=== PATIENT | male | born 1955 | race Caucasian/White ===

== ENCOUNTER → 2016-08-26 | Outpatient (CLI) | payer BC, OTHER ==
--- NOTE | 2016-08-26 10:04 | DI ---
LUMBAR SPINE SERIES, 08/26/2016 8:56 AM: Clinical History: Left leg pain. Previous Exam: 09/06/2010. Upright AP and lateral views are submitted. The vertebral bodies are of normal height and size. There is mild L4-5 disc space bearing with severe narrowing at L5-S1. Since the last exam, the patient has developed a grade 1 minimal spondylolisthesis at L4-5. There is a sclerotic lesion involving the bod y of L2 that was present before and has not changed. It is consistent with a bone island. The pedicle s are normal. 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 Both SI joints are normal. Readin. Chronic disc space narrowing at L4-5 and L5-S1 with arthritic changes in the respective apophysea l joints bilaterally. 2. Interval development of a very mild grade 1 spondylolisthesis at L4-5.
--- NOTE | 2016-08-26 10:10 | DI ---
AP PELVIS and LEFT HIP, 08/26/2016 8:56 AM: Clinical History: Left hip pain. Previous Exam: None at this facility. There is no soft tissue abnormality. The bony structures of the pelvis are normal. 2 views of the lef t hip are submitted. There is asphericity of the left femoral head. No acetabular over coverage is no jason. There is mild narrowing of the superior aspect of each hip joint consistent with degenerative ar thritic change. Readin. There is asphericity of the left femoral head raising the possibility of femoroacetabular impinge ment in this patient. Mild narrowing of the superior aspect of the joint space is noted. 2. The AP pelvis view is unremarkable.
== END ==
LOC: MOB RAD 09:00
PROVIDERS: ATTEND Physician Assistant
DX: M79.605 Pain in left leg (principal); M25.552 Pain in left hip; M16.12 Unilateral primary osteoarthritis, left hip; M48.06 Spinal stenosis, lumbar region; M43.16 Spondylolisthesis, lumbar region
CPT/HCPCS: 72100; 73502

== ENCOUNTER 2016-09-29 21:52 | Emergency (ER) | payer BC, OTHER ==
[2016-09-29] MEDS ORDERED: KETOROLAC 60 MG/2 ML VIAL IM ONE (23:18)
[2016-09-29] MEDS ORDERED: KETOROLAC 10 MG TABLET PO SCH (23:30)
--- NOTE | 2016-09-30 00:25 | PDOC ---
General Adult HPI - General Chief Complaint: Abdomen Pain Stated Complaint: Groin Pain Date Seen by Provider: 09/29/16 Time Seen by Provider: 22:10 Source: POSITIVE: Patient, Spouse Exam Limitations: POSITIVE: No limitations Nurse's Notes Reviewed & Considered: Yes - History of Present Illness Initial Comment: The patient is a 60-year-old male. He states he underwent a lumbar discectomy in [place] 2-1/2 weeks ago. He states that approximately 2 days ago he was walking and began to experience some pain in the left groin, which was exacerbated when he was walking this morning. No falls or direct trauma. He denies any back pain at this time. He states he has chronic left knee pain and states that he has to walk with his left foot deviated into inversion when he walks. He is seeing an orthopedist for his chronic knee pain and states he has been advised to have a knee replacement. No hernias. No abdominal pain. No nausea vomiting diarrhea melena hematochezia hematemesis dysuria or hematuria. No paresthesia or muscular weakness. He states he is concerned about a "blood clot". Have you received a tetanus shot in the past 10 years?: Yes Body Location Affected: REPORTS: Lower Extremity (L) Timing: REPORTS: Abrupt, Getting Worse Duration: >24 hours Severity: Moderate Quality: REPORTS: "Pain", Sharpness, Other (Pain worse when trying to extend his knee and internally rotate his hip) Context: REPORTS: Activity (Walking with left foot internally rotated as above) Modifying Factors: improves with: Movement (Extending left knee and internally rotating left hip) Similar Symptoms Previously: No Recent Care Received: REPORTS: Recently Seen, Treated by MD, Surgery (Lumbar discectomy 2-1/2 weeks ago) Any Prior Injuries Related to Current Complaint?: No - Patient Home Medications Home Medications: Home Medications Acetaminophen/Diphenhydramine [Eq Acetaminophen Pm Gelcap] 1 each PO HS #1 tab 11/03/12 Aspirin [Aspir-Low] 81 mg PO QD #1 11/03/12 Multivitamin [Daily Vitamin] 1 tab ORAL QD tab 03/02/13 Ibuprofen 3 cap PO BID cap 07/27/13 Ca Cmb No.1/Vit D3/B-6/FA/B12 [Vitamin D3 1,000 Unit Tablet] 1 tab PO DAILY #30 tab 08/02/13 Cholecalciferol (Vitamin D3) [Vitamin D3] 1 cap PO QD #30 cap 05/25/14 Omeprazole [Prilosec] 1 cap PO BID #180 capsule 05/25/14 Amlodipine Besylate 1 tab PO BID #180 tab 03/25/16 Enalapril Maleate 1 tab PO BID #180 tab 06/14/16 Hydrochlorothiazide 1 tab PO QD #90 tab 06/14/16 Venlafaxine HCl 1 tab PO QD #90 tab 06/14/16 Metformin HCl 1 tab PO BID #180 tab 08/08/16 Hydrocodone Bit/Acetaminophen [[place] 7.5-325 Tablet] 1 tab PO Q4-6H #20 tab Cyclobenzaprine HCl [Flexeril] 10 mg PO Q8H PRN 09/29/16 Ketorolac Tromethamine [Toradol] 10 mg PO Q6H PRN #20 tablet 09/29/16 - Patient Allergies Allergies/Adverse Reactions: Allergies Allergy/AdvReac Type Severity Reaction Status Date / Time No Known Allergies Allergy Verified 09/29/16 22:05 Past Medical History - heen HEENT History: Denies History Additional HEENT History: HARD TIME SWALLOWING, STATES RINGING IN EARS CONSTANTLY Cardiovascular History: Hypertension Additional Cardiovasular History: PT STATES RIGHT BUNDLE BRANCH BLOCK Respiratory History: Denies History Gastrointestinal History: Denies History Genitourinary History: Kidney Stones Additional Genitourinary History: PT STATES HAS HAD KIDNEY STONES IN BOTH KIDNEYS Endocrine History: Denies History Musculoskeletal History: Denies History Neurological History: Denies History Blood Disorders: Denies History Psychiatric History: Depression History of Sexually Transmitted Diseases: No Male Reproductive History: Denies History Cancer History: Denies History In Past Year Been Physically Harmed or Verbally Threatened: No History of MDRO: No History of Other Communicable Diseases: No Tobacco Use: Never Smoker Alcohol Use: None Substance Use Type: None Previous Surgical History: Yes Type / Date of Surgery: APPENDECTOMY, BILATERAL EYE MUSCLE RELEASE, LEFT HAND SURGERY, LEFT KNEE SURGERY Anesthesia Reactions: No Malignant Hyperthermia: No Family History of Malignant Hyperthermia: No Significant Family History: No pertinent family hx Past Medical History Reviewed: Reviewed - No Changes ROS - Limitations ROS Limitations: No Limitations Constitution: REPORTS: Denies Symptoms Cardiovascular: REPORTS: Denies Cardiac Symptoms Respiratory: REPORTS: Denies Resp Symptoms Neurological: REPORTS: Denies Neuro Symptoms Gastrointestinal: REPORTS: Denies GI Symptoms Endocrine: REPORTS: Denies Symptoms Musculoskeletal: REPORTS: Joint Pain (Left groin and inguinal area as above) Genitourinary: REPORTS: Denies Symptoms Eyes: REPORTS: Denies Symptoms ENT: REPORTS: Denies Symptoms Skin: REPORTS: Denies Skin Symptoms Lympathic: REPORTS: Denies Lympathic Symptoms Immunologic: POSITIVE: Denies Symptoms Psychiatric: POSITIVE: Denies Psych Symptoms General Adult Exam - General Appearance General Appearance: POSITIVE: Alert, Cooperative, No Acute Distress, No Evidence of Trauma, Other (Morbidly obese) - HEENT HEENT: POSITIVE: Head Inspection Nml, Eyes Inspection Nml, Ears Inspection Nml, Nose Inspection Nml, Oral/Dental Inspect. Nml, Pharynx Inspect. Nml, PERRL, EOMI - Pupils Pupil Size: 3 mm: Bilateral (PERRLA) - Neck Neck: POSITIVE: Normal Inspection, Thyroid Normal - Respiratory Respiratory: POSITIVE: No Respiratory Distress, Breath Sounds Normal, Chest Non- Tender - Cardiovascular Cardiovascular: POSITIVE: Regular Rate & Rhythm, No Murmur, No Gallop, PMI Normal Peripheral Pulses: Radial (R): 2+, Radial (L): 2+, Femoral (R): 2+, Femoral (L) : 2+, Popliteal (R): 2+, Popliteal (L): 2+, Dorsalis-pedis (R): 2+, Dorsalis- pedis (L): 2+ - Abdomen Abdomen: Soft: (All Quadrants), Normal Bowel Sounds: (All Quadrants), Denies Tenderness: (All Quadrants), No Splenomegaly: (All Quadrants), No Hepatomegaly: (All Quadrants), No Guarding: (All Quadrants), No Rebound: (All Quadrants), No Palpable Pulse: (All Quadrants), No Palpabale Mass: (All Quadrants), No Distention: (All Quadrants), No Rigidity: (All Quadrants) - Back Back: POSITIVE: Other (Well healed surgical scar from recent lumbar discectomy with no signs of infection). NEGATIVE: CVA Tenderness, Thoracic Tenderness, Lumbosacral Tenderness - Skin Skin: POSITIVE: Normal Color, Warm, Dry, No Rash - Extremities Additional Extremities Details: Examination of upper extremities and right lower extremity is normal. Patient has pain over the area of insertion of the rectus femoris when he actively extends his knee, especially against resistance. He has no pain when his knee is passively extended. He also has some pain medial to the insertion of the rectus femoris with active internal rotation of the hip, especially against resistance. He has no pain with this motion when his hip is passively internally rotated. No rubor, calor. No sensory or motor symptoms. No muscle weakness. All pulses of both lower extremities are full and symmetrical. 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 General Adult Progress - Results Reviewed by me Lab Results Reviewed: Yes (d-dimer negative) Lab Results:: Laboratory Results 09/29/16 Range/Units 22:57 D-Dimer 0.46 (0.00-0.59) mg/L - Patient's Progress Pain Medication Addressed: POSITIVE: Yes (Patient given Toradol 60 mg IM and discharged on Toradol, 10 mg every 6 hours as necessary) School/Work Release Addressed: POSITIVE: Yes (Advised minimal weightbearing for 48-72 hours.) Re-Examine Time: 23:15 Status: POSITIVE: Unchanged, Re-Examined Antibiotics Given: No - Consult Counseled: POSITIVE: Patient, Family, RE: Lab Results, RE: DX, RE: Need for F/U Patient Care Time - Estimated PCT Patient Care Time (In Minutes): 50 Vital Signs - Recent Vital Signs Vital Signs: Blood pressure 133/85, heart rate 80, respiratory rate 20, temperature 98.4F, oxygen saturation on room air 93%. - VS Reviewed Vital Signs Reviewed: Yes Discharge Clinical Impression: Inguinal muscle strain Discharge Disposition: Discharged to Home Condition: Fair Prescriptions / Orders: Ketorolac Tromethamine [Toradol] 10 mg PO Q6H PRN #20 tablet PRN Reason: Pain Patient Instructions Given at Discharge: Groin Strain (ED) Additional Instructions: Rest for 2 or 3 days. Continue your pain medicine, one every 4-6 hours. Add to this Toradol, one tablet every 6 hours as necessary for pain. Use your walker as necessary. Follow-up with Dr. Robles, your orthopedist, if not improving well in 3 days. Return here anytime if condition worsens, or as necessary. Do not take Advil, Aleve or similar medications while you are taking Toradol. Follow Up With: JOSE MANUEL HECTOR [Primary Care Provider] -
[2016-09-30 03:22] VITALS: RESP 20; TEMP 98.4
== END 2016-09-29 23:34 | disposition home or self-care (01) ==
LOC: ER 21:52
DX: S39.011A Strain of muscle, fascia and tendon of abdomen, initial encounter (principal); M25.562 Pain in left knee
CPT/HCPCS: 36415; 85379; 96372; 99282; 99283; J1885